=== PATIENT | female | born 2000 | race Caucasian/White ===

== ENCOUNTER 2020-01-17 23:11 | Emergency (ER) | payer BC, OTHER ==
[2020-01-18] MEDS ORDERED: NORMAL SALINE 1000 ML 1,000 ML IV ONE (00:06)
[2020-01-18] MEDS ORDERED: ONDANSETRON HCL INJ/PF 4 MG/2 ML SDV IV ONE ×2 (00:06→08:42)
--- NOTE | 2020-01-18 00:07 | ER Document Report ---
ED Medical Screen (RME) - General Chief Complaint: Abdominal Pain Stated Complaint: ABDOMINAL PAIN Time Seen by Provider: 01/18/20 00:03 Primary Care Provider: VINH POST MD [Primary Care Provider] - Follow up as needed Mode of Arrival: Medic Information source: Patient Notes: Patient presents with right lower quadrant pain that started yesterday. Patient states that pain resolved and then came back again today. Patient reports nausea vomiting x3 episodes. Patient is currently on her menstrual cycle. Patient denies any urinary symptoms. Patient denies any significant past medical history. I have greeted and performed a rapid initial assessment of this patient. A comprehensive ED assessment and evaluation of the patient, analysis of test results and completion of the medical decision making process will be conducted by additional ED providers. - Related Data Allergies/Adverse Reactions: No Known Allergies Allergy (Unverified 11/03/11 17:32) Past Medical History - Immunizations Immunizations up to date: Yes Physical Exam - Vital signs Vitals: Temp Pulse Resp BP Pulse Ox 97.6 F 108 H 20 113/74 99 01/17/20 23:31 01/17/20 23:31 01/17/20 23:31 01/17/20 23:31 01/17/20 23:31 - Abdominal Inspection: Morbidly Obese Tenderness: Tender - Right lower quadrant Course - Vital Signs Vital signs: Temp Pulse Resp BP Pulse Ox 97.6 F 108 H 20 113/74 99 01/17/20 23:31 01/17/20 23:31 01/17/20 23:31 01/17/20 23:31 01/17/20 23:31 Doctor's Discharge - Discharge Referrals: VINH POST MD [Primary Care Provider] - Follow up as needed
[2020-01-18] MEDS ORDERED: HYDROCODONE/ACETAMINOPHEN 5-325 MG TABLET PO ONE (01:31)
--- NOTE | 2020-01-18 03:33 | RADIOLOGY REPORT (SQ) ---
Ultrasound of the pelvis: 01/18/2020 2:28 AM CDT HISTORY: 19-year-old patient with right lower quadrant pelvic pain. TECHNIQUE: Multiple grayscale and color Doppler images of the pelvis were obtained transabdominally and transvaginally. COMPARISON: None available FINDINGS: The uterus measures 7.6 x 5.0 x 3.9 cm. The endometrium measures 3-4 mm in thickness. No myometrial mass is seen. The right adnexa measures 12.2 x 11.3 x 9.6 cm. There is a hypoechoic area within the right ovary which demonstrate some septations. No abnormal mural nodularity is seen. Some venous waveforms were obtained from the periphery. The left ovary measures 2.1 x 1.7 x 1.6 cm. Normal arterial waveforms were obtained from the left ovary. No free intraperitoneal fluid is seen within the posterior cul-de-sac. IMPRESSION: There is a hypoechoic area at the right adnexa which demonstrates some septations. This may represent an ovarian or adnexal neoplasm such as a cystadenoma or cystadenocarcinoma. A hydrosalpinx is felt to be less likely.
[2020-01-18 03:48] LABS: ABSOLUTE LYMPHOCYTES (AUTO) 0.7 10^3/uL (0.5-4.7); ABSOLUTE MONOCYTES (AUTO) 0.3 10^3/uL (0.1-1.4); ABSOLUTE NEUT (AUTO) 9.7 10^3/uL (1.7-8.2); BASOPHILS % (AUTO) 0.3 % (0-2); EOSINOPHILS % (AUTO) 0.1 % (0-6); HEMATOCRIT 38.9 % (36.0-47.0); HEMOGLOBIN 13.5 g/dL (12.0-15.5); LYMPHOCYTES % (AUTO) 6.8 % (13-45); MEAN CORPUSCULAR HEMOGLOBIN 28.5 pg (27.0-33.4); MEAN CORPUSCULAR HGB CONC 34.7 g/dL (32.0-36.0); MEAN CORPUSCULAR VOLUME 82 fl (80-97); PLATELET COUNT 297 10^3/uL (150-450); RED BLOOD COUNT 4.73 10^6/uL (3.72-5.28); RED CELL DISTRIBUTION WIDTH 13.9 % (11.5-14.0); SEGMENTED NEUTROPHILS % (AUTO) 89.8 % (42-78); TOTAL CELLS COUNTED % (AUTO) 100 %; WHITE BLOOD COUNT 10.8 10^3/uL (4.0-10.5)
[2020-01-18 04:05] LABS: ALBUMIN 4.5 g/dL (3.5-5.0); ALKALINE PHOSPHATASE 72 U/L (38-126); ANION GAP 12 (5-19); ASPARTATE AMINO TRANSFERASE 26 U/L (14-36); BILIRUBIN,DIRECT 0.3 mg/dL (0.0-0.4); BILIRUBIN,TOTAL 0.8 mg/dL (0.2-1.3); BLOOD UREA NITROGEN 8 mg/dL (7-20); CALCIUM 9.6 mg/dL (8.4-10.2); CARBON DIOXIDE 21 mmol/L (22-30); CHLORIDE 104 mmol/L (98-107); GLUCOSE 125 mg/dL (75-110); POTASSIUM 4.1 mmol/L (3.6-5.0); TOTAL PROTEIN 7.8 g/dL (6.3-8.2)
[2020-01-18] MEDS ORDERED: FENTANYL CITRATE INJ/PF 100 MCG/2 ML AMPUL IV ONE (08:42)
--- NOTE | 2020-01-18 08:43 | ER Document Report ---
ED GI/ - General Chief Complaint: Abdominal Pain Stated Complaint: ABDOMINAL PAIN Time Seen by Provider: 01/18/20 00:03 Primary Care Provider: VINH POST MD [PEDIATRICS] - Follow up as needed Mode of Arrival: Medic Information source: Patient Notes: Otherwise healthy 19-year-old female presenting to the emergency department chief complaint of severe right lower quadrant pain that began yesterday. She states pain went away on its own and then returned abruptly. She reports nausea with vomiting. Denies any fever, reports chills. She is currently on her menstrual cycle. She does report having a similar pain 4 months ago, she was seen by a provider at student services at her college, she states they did not do anything at that time. She denies any urinary symptoms or abnormal vaginal discharge. - Related Data Allergies/Adverse Reactions: No Known Allergies Allergy (Unverified 11/03/11 17:32) Past Medical History - General Information source: Patient - Social History Smoking Status: Never Smoker Frequency of alcohol use: None Drug Abuse: None Family History: CAD, DM, Other - mother has fibroids - Medical History Medical History: Negative Surgical Hx: Negative - Immunizations Immunizations up to date: Yes Review of Systems - Review of Systems Constitutional: No symptoms reported EENT: No symptoms reported Cardiovascular: No symptoms reported Respiratory: No symptoms reported Gastrointestinal: Abdominal pain, Nausea, Vomiting Genitourinary: No symptoms reported Female Genitourinary: No symptoms reported Musculoskeletal: No symptoms reported Skin: No symptoms reported Hematologic/Lymphatic: No symptoms reported Neurological/Psychological: No symptoms reported Physical Exam - Vital signs Vitals: Temp Pulse Resp BP Pulse Ox 97.6 F 108 H 20 113/74 99 01/17/20 23:31 01/17/20 23:31 01/17/20 23:31 01/17/20 23:31 01/17/20 23:31 - Notes Notes: PHYSICAL EXAMINATION: GENERAL: Well-appearing, well-nourished and in acute distress. HEAD: Atraumatic, normocephalic. EYES: Pupils equal round and reactive to light, extraocular movements intact, conjunctiva are normal. ENT: Moist mucous membranes. NECK: Normal range of motion. LUNGS: Breath sounds clear to auscultation bilaterally and equal. No wheezes rales or rhonchi. HEART: Regular rate and rhythm without murmurs ABDOMEN: Soft, nondistended abdomen. No masses appreciated. Tenderness in the right lower quadrant. Female : Unable to perform due to patient's pain. Musculoskeletal: Normal range of motion, no pitting or edema. No cyanosis. NEUROLOGICAL: Cranial nerves grossly intact. Normal speech. PSYCH: Normal mood, normal affect. SKIN: Warm, Dry, normal turgor, no rashes or lesions noted. Course - Re-evaluation Re-evalutation: 01/18/20 09:50 Spoke with ongoing on-call radiologist, Dr. Ndiaye, he states there is blood flow to the periphery of the right ovary however he does recommend patient having a CT of the abdomen pelvis, patient has already had this ordered, she is getting this done now. 01/18/20 10:00 Consulted SPECIAL EDUCATION SUPERINTENDENT supervisor [place], spoke with Dr. Ferris. She will review patient's images. 01/18/20 10:21 Patient continues to have 5/5 pain. She has received fentanyl, morphine and Dilaudid. We will give her a dose of IV acetaminophen. Awaiting return call from SPECIAL EDUCATION SUPERINTENDENT. Likely patient will need transfer to a tertiary facility. 01/18/20 11:07 Dr. Ferris came to the bedside and evaluated the patient. She states that she is able to perform the surgery however we do not have gynecology/oncology available here and that the patient and mother were informed that if we do the surgery here to remove the right ovary she could likely require a second surgery at another time. 01/18/20 11:10 Called [facility] transfer center to initiate transfer. 01/18/20 11:[address] Harriet Davis SUBWAY CONDUCTOR/ONC at [facility]. She feels it would be most appropriate if this patient was accepted by gynecology, the transfer center states they have no beds, they are on regional diversion, they are not taking a wait list at this time. 01/18/20 12:30 Call [facility] to initiate transfer. 01/18/20 12:57 Call placed to [facility] 01/18/20 13:23 Awaiting return call from both [facility] and [facility]. Nursing staff came and reported to me that patient's mother is asking why the surgery cannot be done here. I went to the room to discuss with the mother and the patient that Dr. Ferris the MATTRESS SPECIALIST on-call here said the surgery can be done here however we do not have the oncology portion in case there is any abnormality such as that found. Initially mother and patient requested transfer to a tertiary facility for continuity of care as they will have all specialists available if needed. Patient and mother now continue to want to be transferred, they do not want to have surgery here. 01/18/20 13:47 [facility] to [facility] to inquire about status of transfer. The transfer center informs me they are still waiting for the physic aurelia to return the page. Patient's pain is controlled now, she states it is 0/5. 01/18/20 14:05 [facility] returned phone call, I spoke with Dr. Prakash Ellis supervisor [place] [facility] at [facility]. He states that the patient should have a diagnostic laparostomy at our facility to ensure no ovarian torsion although there is blood flow on the ultrasound. 01/18/20 14:10 [facility] return phone call, I spoke with Dr. Enrique Mccormack at [facility], OBGYN on- call. He has accepted the patient for transfer, this will be an ER to ER transfer. 01/18/20 14:40 Patient and patient's mother updated on plan of care at the bedside. Patient currently denies any pain. I was able to palpate her abdomen as we were unable to earlier secondary to pain as she was sitting up. She does have some tenderness with palpation in the right lower quadrant. Transport should be here in 1 hour to transport her to [facility]. 01/18/20 15:50 Transport is at the bedside patient stable for transfer to [facility] at this time. - Vital Signs Vital signs: Temp Pulse Resp BP Pulse Ox 98.4 F 67 16 114/69 100 01/18/20 15:48 01/18/20 15:48 01/18/20 15:48 01/18/20 15:48 01/18/20 15:48 - Laboratory Result Diagrams: 01/18/20 03:37 01/18/20 03:37 Laboratory results interpreted by me: 01/18/20 01/18/20 01/18/20 03:37 03:37 08:59 WBC 10.8 H Lymph % (Auto) 6.8 L Absolute Neuts (auto) 9.7 H Seg Neutrophils % 89.8 H Carbon Dioxide 21 L Glucose 125 H Urine Ketones 20 H Urine Blood LARGE H Ur Leukocyte Esterase TRACE H Discharge - Discharge Clinical Impression: Adnexal mass Condition: Stable Disposition: [facility] Referrals: VINH POST MD [PEDIATRICS] - Follow up as needed
[2020-01-18] MEDS ORDERED: MORPHINE SULFATE 10 MG/ML INJ IV ONE (09:12)
[2020-01-18 09:27] LABS: APPEARANCE,URINE SLIGHTLY-CLOUDY; BILIRUBIN,URINE NEGATIVE (NEGATIVE); COLOR,URINE YELLOW; GLUCOSE, URINE NEGATIVE (NEGATIVE); KETONES,URINE 20 mg/dL (NEGATIVE); LEUKOCYTE ESTERASE,URINE TRACE (NEGATIVE); NITRITE,URINE NEGATIVE (NEGATIVE); PROTEIN,URINE NEGATIVE (NEGATIVE); URINE SPECIFIC GRAVITY 1.012; UROBILINOGEN,URINE NEGATIVE mg/dL (<2.0)
[2020-01-18] MEDS ORDERED: HYDROMORPHONE HCL INJ/PF 2 MG/ML AMPULE IV ONE ×4 (09:32→15:14)
[2020-01-18] MEDS ORDERED: RINGERS SOLUTION,LACTATED 1,000 ML IV ONE ×2 (09:47→15:03)
[2020-01-18] MEDS ORDERED: ACETAMINOPHEN 1,000 MG/100 ML RTUPB IV ONE (10:20)
--- NOTE | 2020-01-18 10:21 | RADIOLOGY REPORT (SQ) ---
EXAM DESCRIPTION: CT ABD/PELVIS WITH IV ONLY IMAGES COMPLETED DATE/TIME: 01/18/2020 9:59 am REASON FOR STUDY: RLQ pain COMPARISON: Pelvic ultrasound from 01/18/2020. TECHNIQUE: CT scan of the abdomen and pelvis performed using helical scanning technique with dynamic intravenous contrast injection. No oral contrast. Images reviewed with lung, soft tissue, and bone windows. Reconstructed coronal and sagittal MPR images reviewed. Delayed images for evaluation of the urinary system also acquired. All images stored on PACS. All CT scanners at this facility use dose modulation, iterative reconstruction, and/or weight based d osing when appropriate to reduce radiation dose to as low as reasonably achievable (ALARA). [facility]: Dose Right [facility]: CareDose [facility]: Dose Right [facility]: Teradose 4D [facility]: [employer] CONTRAST TYPE AND DOSE: Contrast/concentration: Isovue 350.00 mmol/ml; Total Contrast Delivered: 100 .0 ml; Total Saline Delivered: 42.0 ml RENAL FUNCTION: GFR > 60. RADIATION DOSE: CT Rad equipment meets quality standard of care and radiation dose reduction techniq ues were employed. CTDIvol: 17.1 - 20.1 mGy. DLP: 2139 mGy-cm. LIMITATIONS: None. FINDINGS: LOWER CHEST: No acute findings. LIVER: The morphology of the liver is noncirrhotic. The portal veins are patent. There is no hepati c mass. SPLEEN: No splenomegaly or splenic mass. PANCREAS: No acute gross abnormality of the pancreas. GALLBLADDER: No abnormality that is apparent on CT. ADRENAL GLANDS: No mass or asymmetry. RIGHT KIDNEY AND URETER: No solid mass, hydronephrosis, nephrolithiasis, hydroureter or ureterolithia sis. LEFT KIDNEY AND URETER: No solid mass, hydronephrosis, nephrolithiasis, hydroureter or ureterolithias is. AORTA AND VESSELS: No aneurysm or dissection of the abdominal aorta. RETROPERITONEUM: No retroperitoneal adenopathy, hemorrhage or mass. BOWEL AND PERITONEAL CAVITY: No bowel obstruction, bowel wall thickening or pericolonic/ perienteric inflammation. No mesenteric adenopathy, free intraperitoneal fluid or mesenteric/ omental inflammati on. APPENDIX: Normal. PELVIS: There is a complex cystic lesion in the mid pelvis that measures 10.4 cm in AP diameter, 10 c m in craniocaudal diameter and 12.8 cm in craniocaudal diameter ; the lesion contains eccentric bulky calcification and likely represents the complex cystic lesion described on the correlative ultrasoun d. There is no abnormality of the uterus or left adnexum that is apparent on CT. The urinary bladde r is partially distended. ABDOMINAL WALL: No mass or hernia. BONES: No acute findings. OTHER: No other finding. IMPRESSION: Complex cystic lesion in the mid pelvis that measures 10.4 cm in AP diameter, 10 cm in c raniocaudal diameter and 12.8 cm in craniocaudal diameter ; the lesion contains eccentric ulcer calci fications likely represents the complex cystic lesion described on the correlative ultrasound. The f avored differential consideration is an ovarian dermoid cyst. TECHNICAL DOCUMENTATION: JOB ID: [id number] Quality ID # [id number]: Final reports with documentation of one or more dose reduction techniques (e.g., Au tomated exposure control, adjustment of the mA and/or kV according to patient size, use of iterative reconstruction technique) 2010 [employer]- All Rights Reserved Reading location - IP/workstation name: [email or web address]
--- NOTE | 2020-01-18 11:12 | PDOC CONSULTATION ---
Consultation Consult Date: 01/18/20 Attending physician:: MONICA HILLIARD Provider Consulted: ANUSHA ORTIZ Consult reason:: abdominal pain, large ovarian mass History of Present Illness Admission Date/PCP: 01/18/2020 Patient complains of: abdominal pain for 2 days History of Present Illness: STACEY GARCIA is a 19 year old female G0 presents for 2 days history of pain and worsening last night - reports almost passed out from pain last night. presented to the ER late yesterday evening. She report decrease appetite and 5/5 pain. She is being given pain meds in ER. She has never had surgery before and reports no other medical problems. Past Medical History Gynecological Infection: No Social History Information Source: Patient, Parent Lives with: Family Smoking Status: Never Smoker Electronic Cigarette use?: No Frequency of Alcohol Use: None Hx Recreational Drug Use: No Drugs: None Hx Prescription Drug Abuse: No Family History Family History: CAD, DM, Other - mother has fibroids Parental Family History Reviewed: No Children Family History Reviewed: NA Sibling(s) Family History Reviewed.: NA Medication/Allergy Home Medications: Cyclobenzaprine HCl [Flexeril 10 Mg Tablet] 10 mg PO Q6 PRN #15 tablet 11/03/11 Ibuprofen [Motrin 800 Mg Tablet] 800 mg PO Q6 PRN #20 tablet 11/03/11 No Home Medications 1 11/03/11 Allergies/Adverse Reactions: No Known Allergies Allergy (Unverified 11/03/11 17:32) Review of Systems Constitutional: ABSENT: chills, fever(s), headache(s), weight gain, weight loss Gastrointestinal: PRESENT: abdominal pain, nausea. ABSENT: vomiting Neurological: ABSENT: abnormal gait, abnormal speech, confusion, dizziness, focal weakness, syncope Endocrine: ABSENT: cold intolerance, heat intolerance, polydipsia, polyuria Hematologic/Lymphatic: ABSENT: easy bleeding, easy bruising Physical Exam - Physical Exam Vital Signs: Temp Pulse Resp BP Pulse Ox 98.5 F 72 20 107/71 100 01/18/20 03:29 01/18/20 03:29 01/18/20 03:29 01/18/20 03:29 01/18/20 03:29 Intake & Output 01/17/20 01/18/20 01/19/20 06:59 06:59 06:59 Intake Total 1000 Balance 1000 Weight 110.2 kg General appearance: PRESENT: no acute distress, well-developed, well-nourished Head exam: PRESENT: atraumatic, normocephalic Respiratory exam: PRESENT: clear to auscultation enoch, symmetrical, unlabored Cardiovascular exam: PRESENT: RRR. ABSENT: diastolic murmur, rubs, systolic murmur GI/Abdominal exam: PRESENT: tenderness Rectal exam: PRESENT: deferred Extremities exam: PRESENT: full ROM. ABSENT: calf tenderness, clubbing, pedal edema Neurological exam: PRESENT: alert, awake, oriented to person, oriented to place, oriented to time, oriented to situation, CN II-XII grossly intact. ABSENT: motor sensory deficit Psychiatric exam: PRESENT: appropriate affect, normal mood. ABSENT: homicidal ideation, suicidal ideation Result Laboratory Results: 01/18/20 03:37 01/18/20 03:37 01/18/20 01/18/20 01/18/20 03:37 03:37 03:37 WBC 10.8 H RBC 4.73 Hgb 13.5 Hct 38.9 MCV 82 MCH 28.5 MCHC 34.7 RDW 13.9 Plt Count 297 Seg Neutrophils % 89.8 H Sodium 137.2 Potassium 4.1 Chloride 104 Carbon Dioxide 21 L Anion Gap 12 BUN 8 Creatinine 0.67 Est GFR ( Amer) > 60 Glucose 125 H Calcium 9.6 Total Bilirubin 0.8 AST 26 Alkaline Phosphatase 72 Total Protein 7.8 Albumin 4.5 Lipase 80.9 Serum HCG, Qual NEGATIVE Urine Color Urine Appearance Urine pH Ur Specific [place] Urine Protein Urine Glucose (UA) Urine Ketones Urine Blood Urine Nitrite Ur Leukocyte Esterase Urine WBC (Auto) Urine RBC (Auto) 01/18/20 08:59 WBC RBC Hgb Hct MCV MCH MCHC RDW Plt Count Seg Neutrophils % Sodium Potassium Chloride Carbon Dioxide Anion Gap BUN Creatinine Est GFR ( Amer) Glucose Calcium Total Bilirubin AST Alkaline Phosphatase Total Protein Albumin Lipase Serum HCG, Qual Urine Color YELLOW Urine Appearance SLIGHTLY-CLOUDY Urine pH 5.0 Ur Specific [place] 1.012 Urine Protein NEGATIVE Urine Glucose (UA) NEGATIVE Urine Ketones 20 H Urine Blood LARGE H Urine Nitrite NEGATIVE Ur Leukocyte Esterase TRACE H Urine WBC (Auto) 6 Urine RBC (Auto) 1 Impressions: Transvaginal US 01/18/20 00:05 IMPRESSION: There is a hypoechoic area at the right adnexa which demonstrates some septations. This may represent an ovarian or adnexal neoplasm such as a cystadenoma or cystadenocarcinoma. A hydrosalpinx is felt to be less likely. Abdomen/Pelvis CT 01/18/20 09:41 IMPRESSION: Complex cystic lesion in the mid pelvis that measures 10.4 cm in AP diameter, 10 cm in craniocaudal diameter and 12.8 cm in craniocaudal diameter ; the lesion contains eccentric ulcer calcifications likely represents the complex cystic lesion described on the correlative ultrasound. The favored differential consideration is an ovarian dermoid cyst. Status: Imported from PACS Assessment & Plan - Diagnosis (1) Adnexal mass Is this a current diagnosis for this admission?: Yes Plan: midpelvis probably right adnexal mass large 10-12 cm. Pt with significant pain - medicated by ER. Reviewed patient needs surgical intervention and needs to likely have ovary removed. Concern that may not be a dermoid as it does not have all the features of a dermoid. Concern for possible LMP. Reviewed if find LMP may need to have 2nd interval surgery for lymph nodes etc. Patient mother works at [employer] and would prefer to transfer patient to [facility] for [facility]. WIll notify [facility] that family and patient request transfer. - Time Time Spent: 30 to 50 Minutes Critical Time spent with patient: Less than 15 minutes Medications reviewed and adjusted accordingly: No Anticipated Discharge Disposition: Tertiary Anticipated Discharge Timeframe: when bed available - Inpatient Certification Based on my medical assessment, after consideration of the patient's comorbidities, presenting symptoms, or acuity I expect that the services needed warrant INPATIENT care.: Yes I certify that my determination is in accordance with my understanding of Medicare's requirements for reasonable and necessary INPATIENT services [42 CFR 412.3e].: Yes Medical Necessity: Need for Pain Control, Need for Surgery
[2020-01-18 15:54] VITALS: BP 114/69
== END 2020-01-18 16:00 | disposition short-term general hospital (02) ==
LOC: ER 23:11
DX: R19.09 Other intra-abdominal and pelvic swelling, mass and lump (principal); R10.31 Right lower quadrant pain; R11.2 Nausea with vomiting, unspecified
CPT/HCPCS: 96376; 99285; 96361; 96375; 96365; 36415; 83690; 84703; 85025; 80053; 81001; 76830; 93976; 74177; J3010; J2270; J1170; J2405; J7030; J7120; J0131